=== PATIENT | female | born 1980 | race African-American/Black ===

== ENCOUNTER 2016-12-20 13:08 | Emergency (ER) | payer MEDICAID ==
[~2016-12-20] VITALS: Ht 165.1 cm; Wt 110.0 kg
[~2016-12-20 13:08] MED LIST: NON COMPLIANT
[2016-12-20] MEDS ORDERED: SODIUM CHLORIDE 0.9% 1,000 ML IV ONE (13:46)
[2016-12-20 14:32] LABS: BASOPHILS % 0.5 % (0.0-2.0); HEMATOCRIT. 40.4 % (36.0-48.0); HEMOGLOBIN. 13.4 g/dL (12.0-16.0); LYMPHOCYTES % 45.6 % (20.0-50.0); MEAN CORPUSCULAR HEMOGLOBIN 30.6 pg (28.0-32.0); MEAN CORPUSCULAR HGB CONC 33.2 g/dL (31.0-37.0); MEAN CORPUSCULAR VOLUME 92.2 fL (81.0-99.0); MEAN PLATELET VOLUME 9.1 fl (7.4-10.4); MONOCYTES % 12.2 % (2.0-8.0); NEUTROPHILS % 41.7 % (40.0-76.0); PLATELET 211 x1000/uL (130-400); RED BLOOD CELL COUNT 4.39 mill/uL (4.2-5.4); RED CELL DISTRIBUTION WIDTH 14.6 % (11.6-14.6)
[2016-12-20 14:41] LABS: AMMONIA 14 uMol/L (<32); INDEX HEMOLYSI 1 (1-3)
[2016-12-20 14:46] LABS: ACETAMINOPHEN < 2 ug/mL (10-30); ALANINE AMINOTRANSFERASE 25 IU/L (13-61); ALBUMIN 3.3 g/dL (3.4-5.0); ANION GAP 12; CALCIUM 8.3 mg/dL (8.5-10.1); CARBON DIOXIDE 30 mEq/L (21-32); CHLORIDE 107 mEq/L (98-107); ETHANOL BLOOD < 10 mg/dL; INDEX HEMOLYSI 1 (1-3); INDEX ICTERIC 1 (1-4); INDEX LIPEMIC 1 (1-3); UREA NITROGEN BLOOD 10 mg/dL (7-21); eGFR > 60 mL/min (>60)
[2016-12-20 15:13] LABS: HCG SCREEN NEGATIVE
[2016-12-20 15:23] LABS: CLARITY URINE TURBID (CLEAR); COLOR URINE DARK YELLOW (YELLOW); GLUCOSE URINE NEGATIVE (NEGATIVE); KETONES URINE NEGATIVE (NEGATIVE); LEUKOCYTE ESTERASE URINE NEGATIVE (NEGATIVE); NITRITE URINE NEGATIVE (NEGATIVE); OCCULT BLOOD URINE TRACE (NEGATIVE); PH URINE 5.5 (4.5-8.0); PROTEIN URINE TRACE (NEGATIVE)
[2016-12-20 15:45] LABS: *AMPHETAMINES SCREEN URINE NEGATIVE (NEGATIVE); *BARBITURATES SCREEN URINE NEGATIVE (NEGATIVE); *BENZODIAZEPINES SCREEN URINE NEGATIVE (NEGATIVE); CANNABINOID URINE SCREEN NEGATIVE (NEGATIVE); ECSTASY MDMA SCREEN URINE NEGATIVE (NEGATIVE); METHADONE URINE SCREEN NEGATIVE (NEGATIVE); OPIATES URINE SCREEN NEGATIVE (NEGATIVE); PHENCYCLIDINE URINE SCREEN NEGATIVE (NEGATIVE)
[2016-12-20 15:46] LABS: *COCAINE SCREEN URINE PRESUMTIVE POSITIVE (NEGATIVE)
[2016-12-20 15:52] LABS: AMORPHOUS SEDIMENT URINE 2+ /lpf; RBC URINE 0-2 /hpf (0-2)
[2016-12-20 15:53] LABS: BACTERIA URINE 2+; MUCUS URINE 1+ /lpf (< = 2+); SQUAMOUS EPITHELIAL CELL URINE FEW /lpf (RARE/1+)
[2016-12-20] MEDS ORDERED: LORAZEPAM 2MG/ML CPJ IM STA (17:19)
[2016-12-20] MEDS ORDERED: DIPHENHYDRAMINE 50MG/ML VIAL IM STA (17:19)
[2016-12-20] MEDS ORDERED: LORAZEPAM 2MG/ML CPJ ONE (17:29)
[2016-12-20] MEDS ORDERED: DIPHENHYDRAMINE 50MG/ML VIAL ONE (17:29)
[2016-12-20] MEDS ORDERED: OLANZAPINE 10 MG/VIAL IM ONE (17:30)
[2016-12-21 06:30] VITALS: BP 132/68
== END 2016-12-21 06:30 | disposition home or self-care (01) ==
LOC: ER 13:23
DX: G92 Toxic encephalopathy (principal); T40.5X5A Adverse effect of cocaine, initial encounter; F31.9 Bipolar disorder, unspecified; F20.9 Schizophrenia, unspecified; Z88.8 Allergy status to other drugs, medicaments and biological substances; Y92.9 Unspecified place or not applicable
CPT/HCPCS: 36415; 51702; 70450; 80053; 80305; 80307; 80329; 81001; 82140; 84703; 85025; 96360; 96361; 96372; 99285; G0482; J1200; J2060; J3490; J7030; Z7610; A4315